=== PATIENT | female | born 1985 | race Asian ===

== ENCOUNTER 2018-01-25 08:16 | Inpatient (IN) | payer SELFPAY ==
[~2018-01-25] VITALS: Ht 160 cm; Wt 70.3 kg
[~2018-01-25 08:16] MED LIST: PREN-385 PO
[2018-01-26] MEDS ORDERED: LACTATED RINGERS 500 ML IV ONE (01:25)
[2018-01-26] MEDS ORDERED: OXYTOCIN 10 UNITS/ML VIAL IM SCH (01:25)
[2018-01-26] MEDS ORDERED: OXYTOCIN 20 UNITS in LACTATED RINGERS 1,000 ML IV SCH (01:25)
[2018-01-26] MEDS ORDERED: BUPIVACAINE 0.125%/NS PREMIX 250 ML EPI SCH (01:40)
[2018-01-26] MEDS ORDERED: BUPIVACAINE 0.125%/NS PREMIX 250 ML ONE (01:45)
[2018-01-26 01:46] LABS: HEMATOCRIT 36.9 % (36-48); HEMOGLOBIN 12.5 g/dL (12.0-16.0); MEAN CORPUSCULAR HEMOGLOBIN 33 pg (27-31); MEAN CORPUSCULAR HGB CONC 34 g/dL (33-37); MEAN CORPUSCULAR VOLUME 96.4 fL (80-94); PLATELET COUNT (AUTO) 131 K/uL (140-450); RED BLOOD CELL COUNT(AUTO) 3.83 MIL/uL (4.20-5.40); RED CELL DISTRIBUTION WIDTH 13.7 % (11.6-13.7); WHITE BLOOD COUNT (AUTO) 6.5 K/uL (4.8-10.8)
[2018-01-26 02:05] LABS: LYMPHOCYTES % (MANUAL) 31 % (20-46); MONOCYTES % (MANUAL) 10 % (5-12)
[2018-01-26] MEDS ORDERED: OXYTOCIN 20 UNITS/LR PREMIX 1,000 ML IV ONE (02:07)
[2018-01-26] MEDS ORDERED: LACTATED RINGERS 1,000 ML IV SCH (02:15)
[2018-01-26 02:48] LABS: APPEARANCE,URINE CLEAR (CLEAR); BILIRUBIN,URINE NEGATIVE (NEGATIVE); BLOOD, URINE NEGATIVE (NEGATIVE); COLOR,URINE YELLOW (YELLOW); LEUKOCYTE ESTERASE ,URINE NEGATIVE (NEGATIVE); NITRITE, URINE NEGATIVE (NEGATIVE); PH,URINE 6.5 (5.0-9.0); UGLUCOSE NEGATIVE (NEGATIVE)
[2018-01-26 02:57] LABS: RBC,URINE 0-5 (RARE) /HPF (0-5); WBC,URINE 0-5 (RARE) /HPF (0-5)
[2018-01-26] MEDS ORDERED: DOCO100C PO (03:21)
[2018-01-26] MEDS ORDERED: FERR-252 PO (03:21)
[2018-01-26 03:27] VITALS: BP 130/6
[2018-01-26] MEDS ORDERED: BENZOCAINE/MENTHOL 20%-0.5% 60 GM CAN TP PRN (06:15)
[2018-01-26] MEDS ORDERED: OXYTOCIN 10 UNITS/ML VIAL IM PRN (06:15)
[2018-01-26] MEDS ORDERED: IBUPROFEN 800 MG TAB PO PRN (06:15)
[2018-01-26] MEDS ORDERED: MEASLES, MUMPS, AND RUBELLA 1 VIAL SQVAC PRN (06:15)
[2018-01-26] MEDS ORDERED: oxyCODONE/APAP 5/325 MG 1 TAB TAB PO PRN (06:15)
[2018-01-26] MEDS ORDERED: METHYLERGONOVINE 0.2 MG/ML AMP IM PRN (06:15)
[2018-01-26] MEDS ORDERED: TEMAZEPAM 15 MG CAP PO PRN (06:15)
[2018-01-26] MEDS ORDERED: OXYTOCIN 10 UNITS/ML VIAL ONE (06:34)
[2018-01-26] MEDS: HYDROcodone/APAP 5/325 MG 1 TAB TAB PO PRN (20:33)
[2018-01-26] MEDS ORDERED: DOCUSATE SOD/SENNA 50/8.6 MG 1 TAB PO SCH (21:00)
[2018-01-26 22:22] LABS: RAPID PLASMA REAGIN NON-REACTIVE (Non Reactiv)
[2018-01-27] MEDS: HYDROcodone/APAP 5/325 MG 1 TAB TAB PO PRN ×2 (04:05→20:19)
[2018-01-27 07:30] LABS: HEMOGLOBIN 10.2 g/dL (12.0-16.0)
--- NOTE | 2018-01-27 08:42 | NUR ---
PATIENT HAS BEEN SCREENED AND CATEGORIZED LOW NUTRITION RISK. PATIENT WILL BE SEEN WITHIN 7 DAYS OF ADMISSION. 02/01/[address]
[2018-01-28] MEDS: HYDROcodone/APAP 5/325 MG 1 TAB TAB PO PRN ×3 (02:17→11:43)
== END 2018-01-28 12:50 | disposition home or self-care (01) | DRG 775 ==
LOC: MLD 01-26 00:05 → MFCC 01-26 11:05
PROVIDERS: ADMIT Obstetrics & Gynecology; ATTEND Obstetrics & Gynecology
PROC: 10E0XZZ Delivery of Products of Conception, External Approach (ICD-10-PCS; principal; 2018-01-26)
PROC: 3E0R3BZ Introduction of Anesthetic Agent into Spinal Canal, Percutaneous Approach (ICD-10-PCS; 2018-01-26)
PROC: 00HU33Z Insertion of Infusion Device into Spinal Canal, Percutaneous Approach (ICD-10-PCS; 2018-01-26)
PROC: 3E0234Z Introduction of Serum, Toxoid and Vaccine into Muscle, Percutaneous Approach (ICD-10-PCS; 2018-01-26)
DX: O80 Encounter for full-term uncomplicated delivery (principal); Z3A.40 40 weeks gestation of pregnancy; Z37.0 Single live birth; Z23 Encounter for immunization
CPT/HCPCS: 36415; 51702; 59409; 81001; 85018; 85025; 86592; 86886; 86900; 86901; 90715; J2590; J3490; J7120